=== PATIENT | male | born 1970 | race Hispanic/Latino ===

== ENCOUNTER 2021-06-30 16:04 | Emergency (ER) | payer OTHER ==
[2021-06-30 16:08] VITALS: BP 130/85
[2021-06-30] MEDS ORDERED: LIDOCAINE 1%/EPINEPHRINE 1:100,000 VIAL (20 ML) INFILTRATI ONE (16:43)
[2021-06-30] MEDS ORDERED: TETANUS,DIPH,PERTUSS(ACELL) VACCINE 0.5 ML SYRINGE IM ONE (16:43)
--- NOTE | 2021-06-30 16:47 | Emergency Department Report ---
- General Chief Complaint: Wound/Laceration Stated Complaint: HEAD LAC Time Seen by Provider: 06/30/21 16:28 Source: patient Mode of arrival: Ambulatory Limitations: No Limitations - History of Present Illness Initial Comments: Patient is a 50-year-old male presents emergency room with complaints of a laceration to the forehead that occurred just prior to arrival. Patient states that he slipped and fell and hit his head on the edge of a piece of equipment for his bobcat. He states it is a metal piece. He denies anything getting into the wound or any glass. He is unsure of his last tetanus immunization. He denies any loss of consciousness, headache, vomiting, vision changes, numbness, weakness, bowel or bladder incontinence, dizziness, lightheadedness. No allergies to medications. He denies any blood thinner use. - Related Data Allergies Allergy/AdvReac Type Severity Reaction Status Date / Time No Known Allergies Allergy Unverified 06/30/21 16:05 ED Review of Systems ROS: Stated complaint: HEAD LAC Other details as noted in HPI Comment: All other systems reviewed and negative ED Past Medical Hx - Past Medical History Previous Medical History?: No - Surgical History Additional Surgical History: LEFT KNEE SURGERY ED Physical Exam - General Limitations: No Limitations General appearance: alert, in no apparent distress - Head Head exam: Present: other (4 cm laceration present to the left forehead, no muscle involvement, no foreign body,no crepitus, no deformity, no facial bony ttp, facial movements intact) - Eye Eye exam: Present: normal appearance, PERRL, EOMI. Absent: periorbital swelling, periorbital tenderness - ENT ENT exam: Present: mucous membranes moist - Respiratory Respiratory exam: Absent: respiratory distress, accessory muscle use - Neurological Exam Neurological exam: Present: alert, oriented X3 - Psychiatric Psychiatric exam: Present: normal affect, normal mood - Skin Skin exam: Present: warm, dry ED Course Vital Signs 06/30/21 16:07 Temperature 98 F Pulse Rate 84 Respiratory 18 Rate Blood Pressure 130/85 [Right] O2 Sat by Pulse 100 Oximetry - Laceration /Wound Repair Left Head Wound Location: face (left forehead) Wound Length (cm): 4 Wound's Depth, Shape: superficial Wound Explored: clean Irrigated w/ Saline (ccs): 50 Betadine Prep?: Yes Anesthesia: Lidocaine w/ Epi Volume Anesthetic (ccs): 4 (lidocaine 1% with epi) Wound Debrided: moderate Wound Repaired With: sutures Suture Size/Type: 5:0 Number of Sutures: 7 (ethilon) Layer Closure?: No Sterile Dressing Applied?: Yes Progress: Verbal consent obtained by patient Wound irrigated with saline and thoroughly scrubbed with Betadine, 4 cc of 1% lidocaine with epinephrine used anesthetic, no muscle involvement, no foreign bodies, Betadine prep again, sterile drapes applied, sterile gloves worn, 5-0 Ethilon used for skin closure, 7 sutures placed, patient tolerated well, no complications, bleeding controlled, sterile dressing applied ED Medical Decision Making - Medical Decision Making Patient is a 50-year-old male presents emergency room with complaints of a laceration to the forehead that occurred just prior to arrival. Patient states that he slipped and fell and hit his head on the edge of a piece of equipment for his bobcat. He states it is a metal piece. He denies anything getting into the wound or any glass. He is unsure of his last tetanus immunization. He denies any loss of consciousness, headache, vomiting, vision changes, numbness, weakness, bowel or bladder incontinence, dizziness, lightheadedness. No allergies to medications. He denies any blood thinner use. vitals are normal. on exam: 4 cm laceration present to the left forehead, no muscle involvement, no foreign body,no crepitus, no deformity, no facial bony ttp, facial movements intact, no focal neuro deficits, ambulatory without difficulty. Wound irrigated with saline and thoroughly scrubbed with Betadine and repaired per procedure note without any complications. Tetanus immunization was updated. Advised patient Sutures need to be removed in 7 days. Please keep area clean, dry, covered. Wash with antibacterial soap and water and pat dry. After sutures have been removed may use Mederma [id number] to help with scarring. Return to emergency room for any new or worsening symptoms. Follow-up with your primary care doctor. Critical care attestation.: If time is entered above; I have spent that time in minutes in the direct care of this critically ill patient, excluding procedure time. ED Disposition Clinical Impression: Laceration of forehead Qualifiers: Encounter type: initial encounter Qualified Code(s): S01.81XA - Laceration without foreign body of other part of head, initial encounter Disposition: 01 HOME / SELF CARE / HOMELESS Is pt being admited?: No Does the pt Need Aspirin: No Condition: Stable Instructions: Sutures, Roxton, or Adhesive Wound Closure, [id number] Additional Instructions: Sutures need to be removed in 7 days. Please keep area clean, dry, covered. Wash with antibacterial soap and water and pat dry. After sutures have been removed may use Mederma [id number] to help with scarring. Return to emergency room for any new or worsening symptoms. Follow-up with your primary care doctor. Referrals: PRIMARY CARE, [Primary Care Provider] - 2-3 Days Time of Disposition: 17:34 Print Language: ARABIC
== END 2021-06-30 18:05 | disposition home or self-care (01) ==
LOC: ED 16:04
DX: S01.81XA Laceration without foreign body of other part of head, initial encounter (principal); W18.39XA Other fall on same level, initial encounter; Y93.89 Activity, other specified; Y92.89 Other specified places as the place of occurrence of the external cause; Y99.8 Other external cause status
CPT/HCPCS: 90471; 90715; 99281